=== PATIENT | male | born 1975 | race Caucasian/White ===

== ENCOUNTER 2018-06-09 15:04 | Inpatient (IN) | payer OTHER ==
[~2018-06-09] VITALS: Ht 185.4 cm; Wt 175.6 kg
[2018-06-09 15:49] LABS: BASO # 0.1 (0.0-0.2); BASO % 0.9 % (0.0-2.0); EOS # 0.2 (0.0-0.7); EOS % 2.5 % (0-4.0); GRAN # 5.5 (1.4-6.5); GRAN % 60.4 % (42.2-75.2); HEMATOCRIT 44.1 % (42.0-52.0); HEMOGLOBIN 15.2 g/dl (13.5-18.0); LYMPH # 2.5 (1.2-3.4); LYMPH % 27.5 % (20.0-51.0); MEAN CELL VOLUME 83 fl (80.0-100.0); MEAN CORPUSCULAR HEMOGLOBIN 29 pg (27.0-31.0); MEAN CORPUSCULAR HGB CONC 35 g/dl (33.0-37.0); MEAN PLATELET VOLUME 9.8 fl (7.4-10.4); MONO # 0.8 (0.1-0.6); MONO % 8.4 % (1.7-9.3); PLATELET COUNT 307 K/mm3 (130-400); RED BLOOD COUNT 5.32 M/mm3 (4.20-5.60); REDCELL DISTRIBUTION WIDTH-CV 12.3 % (11.5-14.5)
[2018-06-09 15:57] LABS: ALBUMIN 4.5 gm/dL (3.5-5.0); BILIRUBIN,TOTAL 0.4 mg/dL (0.0-1.0); C-REACTIVE PROTEIN 0.8 mg/dL (0.0-0.9); CALCIUM 9.6 mg/dL (8.4-10.2); CREATININE, serum 0.9 mg/dL (0.66-1.25); POTASSIUM 4.1 mmol/L (3.4-5.0)
[2018-06-09] MEDS ORDERED: AMOXICILLIN 8751 TAB PO (16:52)
[2018-06-09] MEDS ORDERED: COREG 25MG25 MG/TAB PO (16:53)
[2018-06-09] MEDS ORDERED: GLUCOPHAGE500 MG/TAB PO (16:53)
[2018-06-09] MEDS ORDERED: LIPITOR20 MG PO (17:30)
[2018-06-09] MEDS ORDERED: VENTOLIN0.09 MG IH (17:30)
[2018-06-09] MEDS ORDERED: PRINZIDE 25 MG-1 TAB PO (17:30)
--- NOTE | 2018-06-09 18:30 | NUR ---
Pt up to unit and Hospitalist in with pt now.
[2018-06-09 19:08] VITALS: BP 116/65; PULSE 87; TEMP 98.2
--- NOTE | 2018-06-09 19:51 | NUR ---
PT REPORT TO BLAINE.
--- NOTE | 2018-06-09 20:01 | NUR ---
Resting in bed with at bedside. Assessment complete. Lungs clear. Heart sounds normal. Bowels active. Pulses strong throughout. Alert and orientated. Denies pain. Denies needs at this time. Call light in reach.
--- NOTE | 2018-06-09 23:40 | NUR ---
Resting in bed watching TV. Call light in reach.
[2018-06-10 02:12] VITALS: BP 112/46; PULSE 79
--- NOTE | 2018-06-10 02:58 | NUR ---
Resting in bed. Provided water. Denies other needs. Call light in reach.
[2018-06-10 06:09] LABS: BASO # 0.1 (0.0-0.2); BASO % 0.8 % (0.0-2.0); EOS # 0.2 (0.0-0.7); EOS % 2.7 % (0-4.0); HEMATOCRIT 40.6 % (42.0-52.0); HEMOGLOBIN 13.7 g/dl (13.5-18.0); LYMPH # 2.5 (1.2-3.4); LYMPH % 33.6 % (20.0-51.0); MEAN CELL VOLUME 84 fl (80.0-100.0); MEAN CORPUSCULAR HEMOGLOBIN 28 pg (27.0-31.0); MEAN CORPUSCULAR HGB CONC 34 g/dl (33.0-37.0); MEAN PLATELET VOLUME 9.8 fl (7.4-10.4); MONO # 0.6 (0.1-0.6); MONO % 8.5 % (1.7-9.3); PLATELET COUNT 248 K/mm3 (130-400); RED BLOOD COUNT 4.86 M/mm3 (4.20-5.60); REDCELL DISTRIBUTION WIDTH-CV 12.5 % (11.5-14.5)
[2018-06-10 06:18] LABS: CREATININE, serum 0.92 mg/dL (0.66-1.25)
--- NOTE | 2018-06-10 06:38 | NUR ---
Uneventful night. Reports double vision still present. Neuro checks normal. Denies needs at this time. Call light in reach.
--- NOTE | 2018-06-10 07:33 | NUR ---
Resting in bed quitely. No pain or needs reported. The call light is in place.
[2018-06-10 07:38] VITALS: BP 129/74; PULSE 74; TEMP 97.9
[2018-06-10 11:47] VITALS: BP 121/65; PULSE 70; TEMP 97.6
--- NOTE | 2018-06-10 12:39 | NUR ---
Awaiting CTA head and neck. No other change throughout the morning the patient remains unsteady when ambulating. The patient also reported feeling like his left ear was itchy and had an excessive amount of ear wax when compared to the other ear. Dr. Lea suggested ENT to see the patient. The patient was negative for orthostatic blood pressure when checked per this nurse.
--- NOTE | 2018-06-10 13:24 | NUR ---
Report received from TRIP Sarmiento.Patient resting in bed with family at bedside.CTA neck and head to be done shortly.no concerns voiced at this time.call light in reach
--- NOTE | 2018-06-10 13:57 | NUR ---
SW and SW student attended clinical rounding and met with patient to discuss discharge planning. Patient lives with his Rossy in [place]. 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 Patient was independent prior to this but is now unable to walk. Patients PCP is Dr Steven Weiss and he obtains his medications from [facility]. SW will continue to follow for PT and OT recommendations.
[2018-06-10 15:51] VITALS: BP 137/57; PULSE 84; TEMP 98.6
--- NOTE | 2018-06-10 18:31 | NUR ---
PT HAS HAD AN EVENFUL SHIFT.ALL TEST UNREMARKABLE.IVF INFUSING.DENIES ANY PAIN.CONTINUES TO C/O DOUBLE VISION.SPOUSE AT BEDSIDE.NO OTHER NEEDS VOICED AT THIS TIME.ALL LIGHT IN REACH
[2018-06-10 18:59] VITALS: BP 143/84; PULSE 83; TEMP 98.1
--- NOTE | 2018-06-10 22:54 | NUR ---
PT IN BED WITH HOB ELEVATED TO 45 DEGREE ANGLE. PT DENIES PAIN OR DISCOMFORT. PT'S EYES STILL SWITCHES WHEN MOVES SIDE TO SIDE OR UP AND DOWN, BUT PUPILS DO EQUALITY REACT TO THE LIGHT. NO NEEDS AT THIS TIME, CALL LIGHT WITHIN REACH.
--- NOTE | 2018-06-10 23:01 | NUR ---
PT ADVISES THAT HE HAS CONTACTS IN HIS EYES AND DID NOT BRING HIS EQUIPMENT TO MAINTAIN THEM AND HE IS GOING TO SLEEP WITH THEM IN HIS EYES. ALSO, THESE ARE NOT THE KIND OF CONTACTS THAT YOU LEAVE IN AND CAN SLEEP WITH.
[2018-06-11 00:29] VITALS: BP 122/61; PULSE 70; TEMP 97.7
[2018-06-11 04:07] VITALS: BP 105/55; PULSE 72; TEMP 97.5
--- NOTE | 2018-06-11 04:33 | NUR ---
PT HAD AN UNEVENFUL NIGHT. PT AWAKENS FOR NEURO CHECKS AND VITALS AND THEN GOES BACK TO SLEEP. PT DENIES PAIN OR DISCOMFORT AND RESP EVEN AND UNLABORED. PT HAS NO NEEDS AT THIS TIME, IN RECLINER AT BEDSIDE, AND CALL LIGHT WITHIN REACH.
--- NOTE | 2018-06-11 07:45 | NUR ---
Pt AAOx3 with spouse at bedside. Call light within reach. MD Venu and MD Jeannette have seen pt and inputed orders. No concerns by patient at this time.
[2018-06-11 08:32] VITALS: BP 116/63; PULSE 68; TEMP 97.9
[2018-06-11 11:22] VITALS: BP 123/53; PULSE 72; TEMP 97.9
[2018-06-11] MEDS ORDERED: FREESTYLE PREC1 EAC5 MC (14:43)
[2018-06-11] MEDS ORDERED: GLUCOSE TEST ST1 DEV MC (14:44)
[2018-06-11] MEDS ORDERED: LANCETS MC (14:44)
--- NOTE | 2018-06-11 15:12 | NUR ---
O2 D/C. PT ON RA FOR 24 HRS PER PROTOCOL
--- NOTE | 2018-06-11 18:00 | NUR ---
Pt transported via wheelchair downstairs to private vehicle, Via [facility] equipment dispatched to pt's home to deliver walker.
[2018-06-12 14:30] LABS: FOLATE (FOLIC ACID) 9.6 ng/mL (7.0-31.4)
[2018-06-13 20:46] LABS: RPR (VDRL) XXX
== END 2018-06-11 17:30 | disposition home or self-care (01) | DRG 948 ==
LOC: COL.ER 15:04 → MEDICAL 17:01
PROVIDERS: Emergency Medicine; Hospitalist; Nurse Practitioner Family; ADMIT Hospitalist
DX: R53.1 Weakness (principal); Z68.43 Body mass index [BMI] 50.0-59.9, adult; H53.2 Diplopia; R73.03 Prediabetes; I10 Essential (primary) hypertension; J20.9 Acute bronchitis, unspecified; E66.01 Morbid (severe) obesity due to excess calories; H55.09 Other forms of nystagmus; G47.33 Obstructive sleep apnea (adult) (pediatric)
CPT/HCPCS: 99222-AI; 99239; A9585; J1650; J7030; Q9967

== ENCOUNTER 2018-06-22 15:06 | Inpatient (IN) | payer OTHER ==
[~2018-06-22] VITALS: Ht 185.4 cm; Wt 178.5 kg
[~2018-06-22 15:06] MED LIST: AMOXICILLIN 8751 TAB PO; COREG 25MG25 MG/TAB PO; FREESTYLE PREC1 EAC5 MC; GLUCOPHAGE500 MG/TAB PO; GLUCOSE TEST ST1 DEV MC; LANCETS MC; LIPITOR 40MG TA40 MG PO; PRINZIDE 25 MG-1 TAB PO; VENTOLIN0.09 MG IH
[2018-07-25] MEDS ORDERED: OS-CAL 500 + D1 TAB PO (13:46)
[2018-07-25] MEDS ORDERED: LANTUS SOLOS100 U/ML SQ (13:47)
[2018-07-25] MEDS ORDERED: PROTONIX 40MG T40 MG PO (13:47)
[2018-07-25] MEDS ORDERED: PREDNISONE20 MG PO (13:51)
[2018-07-25 14:38] VITALS: BP 137/81; PULSE 87; TEMP 98.2
[2018-07-25] MEDS ORDERED: ASPIRIN E.C. 8181 MG PO (14:58)
[2018-07-25] MEDS ORDERED: FOLIC ACID 11 MG/TA1 PO (15:05)
[2018-07-25] MEDS ORDERED: NATURE'S BLEND100 M2 PO (15:08)
[2018-07-25 16:23] VITALS: BP 137/81; PULSE 87; TEMP 98.2
[2018-07-25 19:48] VITALS: BP 135/58; PULSE 75; TEMP 97.3
[2018-07-26 03:35] VITALS: BP 133/70; PULSE 72; TEMP 97.5
[2018-07-26 18:39] VITALS: BP 139/66; PULSE 79; TEMP 98.6
[2018-07-27 05:22] VITALS: BP 115/69; PULSE 80; TEMP 98.2
[2018-07-27 18:28] VITALS: BP 142/65; PULSE 77; TEMP 98
[2018-07-28 05:47] VITALS: BP 103/58; PULSE 69; TEMP 98.4
[2018-07-28 18:17] VITALS: BP 128/52; PULSE 81; TEMP 98.4
[2018-07-29 05:35] VITALS: BP 136/73; PULSE 76; TEMP 97.8
[2018-07-29 15:17] VITALS: BP 133/60; PULSE 84; TEMP 98.8
[2018-07-30 05:25] VITALS: BP 134/66; PULSE 75; TEMP 98.2
[2018-07-30 18:01] VITALS: BP 129/52; PULSE 76; TEMP 98.6
[2018-07-31 06:00] VITALS: BP 106/78; PULSE 69; TEMP 98.1
[2018-07-31 17:33] VITALS: BP 115/60; PULSE 77; TEMP 98.9
[2018-07-31 17:36] VITALS: BP 130/78; PULSE 81; TEMP 99.3
[2018-08-01 05:25] VITALS: BP 127/60; PULSE 74; TEMP 98.4
[2018-08-01 17:30] VITALS: BP 138/74; PULSE 73; TEMP 98.9
[2018-08-01 20:45] VITALS: BP 118/64; PULSE 80; TEMP 98.6
[2018-08-02 06:00] VITALS: BP 129/61; PULSE 70; TEMP 98.3
[2018-08-02 18:51] VITALS: BP 146/81; PULSE 79; TEMP 98.4
[2018-08-03 05:35] VITALS: BP 123/65; PULSE 64; TEMP 97.7
[2018-08-03] MEDS ORDERED: ASPERCREME1 EACH TP (08:45)
[2018-08-03] MEDS ORDERED: PROAIR HFA0.09 MG/AC IH (08:45)
[2018-08-03] MEDS ORDERED: TYLENOL 325MG325 MG PO (08:46)
[2018-08-03] MEDS ORDERED: PREDNISONE20 MG PO (08:48)
[2018-08-03] MEDS ORDERED: ROXICODONE 55 MG/TAB PO (08:49)
== END 2018-08-03 11:55 | disposition left against medical advice (07) | DRG 57 ==
PROVIDERS: ADMIT Internal Medicine
DX: G31.9 Degenerative disease of nervous system, unspecified (principal); G11.9 Hereditary ataxia, unspecified; Z68.43 Body mass index [BMI] 50.0-59.9, adult; I10 Essential (primary) hypertension; E11.9 Type 2 diabetes mellitus without complications; E78.5 Hyperlipidemia, unspecified; F43.23 Adjustment disorder with mixed anxiety and depressed mood; E66.01 Morbid (severe) obesity due to excess calories; H53.2 Diplopia; Z87.891 Personal history of nicotine dependence; Z91.81 History of falling; R47.1 Dysarthria and anarthria
CPT/HCPCS: 99222-AI; 99231-AI; 99232-AI; 99239; J1644; J1815; J7512

== ENCOUNTER 2018-06-28 15:53 | Outpatient (RCR) | payer OTHER | END 2018-07-22 09:33 | disposition home or self-care (01) | LOC: WSC 15:53 | DX: I69.398 Other sequelae of cerebral infarction (principal); H53.2 Diplopia; R26.2 Difficulty in walking, not elsewhere classified; R53.81 Other malaise ==

== ENCOUNTER 2018-12-10 18:10 | Emergency (ER) | payer OTHER ==
[~2018-12-10] VITALS: Ht 185.4 cm; Wt 145.5 kg
[~2018-12-10 18:10] MED LIST changes: +ASPERCREME1 EACH TP; +ASPIRIN E.C. 8181 MG PO; +FOLIC ACID 11 MG/TA1 PO; +LANTUS SOLOS100 U/ML SQ; +NATURE'S BLEND100 M2 PO; +OS-CAL 500 + D1 TAB PO; +PREDNISONE20 MG PO; +PROAIR HFA0.09 MG/AC IH; +PROTONIX 40MG T40 MG PO; +ROXICODONE 55 MG/TAB PO; +TYLENOL 325MG325 MG PO
[2018-12-10 18:24] VITALS: BP 136/90; TEMP 98.9
[2018-12-10 19:05] LABS: BASO # 0.1 (0.0-0.2); BASO % 0.9 % (0.0-2.0); EOS # 0.1 (0.0-0.7); EOS % 0.9 % (0-4.0); GRAN # 8.3 (1.4-6.5); GRAN % 70.7 % (42.2-75.2); HEMATOCRIT 48.6 % (42.0-52.0); HEMOGLOBIN 16.2 g/dl (13.5-18.0); LYMPH # 2.2 (1.2-3.4); LYMPH % 18.8 % (20.0-51.0); MEAN CELL VOLUME 84 fl (80.0-100.0); MEAN CORPUSCULAR HEMOGLOBIN 28 pg (27.0-31.0); MEAN CORPUSCULAR HGB CONC 33 g/dl (33.0-37.0); MEAN PLATELET VOLUME 10.1 fl (7.4-10.4); MONO % 8.4 % (1.7-9.3); PLATELET COUNT 327 K/mm3 (130-400); RED BLOOD COUNT 5.82 M/mm3 (4.20-5.60); REDCELL DISTRIBUTION WIDTH-CV 12.3 % (11.5-14.5)
[2018-12-10 19:24] LABS: ALANINE AMINOTRANSFERASE 68 U/L (21-72); ALBUMIN 4.4 gm/dL (3.5-5.0); ALKALINE PHOSPHATASE 83 U/L (50-136); ANION GAP 13 mmol/L (7-16); AST,SGOT 37 U/L (15-37); BILIRUBIN,TOTAL 0.4 mg/dL (0.0-1.0); BLOOD UREA NITROGEN 9 mg/dL (9-20); C-REACTIVE PROTEIN 0.8 mg/dL (0.0-0.9); CARBON DIOXIDE 26 mmol/L (22-30); CHLORIDE 103 mmol/L (98-107); CREATININE, serum 0.82 (0.66-1.25); GLUCOSE 123 mg/dL (74-106); LIPASE 280 U/L (23-300); POTASSIUM 3.8 mmol/L (3.4-5.0); SODIUM 142 mmol/L (137-145); TOTAL PROTEIN 7.6 gm/dL (6.4-8.2)
[2018-12-10 19:33] LABS: TROPONIN-I < 0.012 ng/mL (0.000-0.035)
[2018-12-10 19:43] LABS: COLLECTION METHOD CLEAN CATCH
[2018-12-10 20:04] LABS: MUCOUS Present /lpf; PH 6 (5-8); SQUAMOUS EPITHELIAL None Seen /hpf; URINE APPEARANCE Clear; URINE BACTERIA None Seen /hpf; URINE BILIRUBIN Negative (NEGATIVE); URINE BLOOD 3+ (NEGATIVE); URINE COLOR Yellow; URINE GLUCOSE Negative (NEGATIVE); URINE KETONE Negative (NEGATIVE); URINE LEUKOCYTE ESTERASE Negative (NEGATIVE); URINE NITRATE Negative (NEGATIVE); URINE PROTEIN(semi-quant) Negative (NEGATIVE); URINE RBC 20-50 /hpf; URINE UROBILINOGEN Negative (NEGATIVE)
[2018-12-10] MEDS ORDERED: NORCO 325 MG-51 TAB PO (22:14)
[2018-12-10 22:36] VITALS: PULSE 101
== END 2018-12-10 22:36 | disposition home or self-care (01) ==
LOC: COL.ER 18:10
PROVIDERS: Emergency Medicine
DX: N20.1 Calculus of ureter (principal); N23 Unspecified renal colic; R19.7 Diarrhea, unspecified; E11.9 Type 2 diabetes mellitus without complications; I10 Essential (primary) hypertension; Z79.82 Long term (current) use of aspirin; Z79.84 Long term (current) use of oral hypoglycemic drugs
CPT/HCPCS: J2405; J3010; J7030; Q9967

== ENCOUNTER 2019-12-21 02:33 | Inpatient (IN) | payer OTHER ==
[~2019-12-21] VITALS: Ht 185.4 cm; Wt 140.7 kg
[~2019-12-21 02:33] MED LIST changes: +NORCO 325 MG-51 TAB PO
[2019-12-21 03:22] LABS: BASO # 0.1 (0.0-0.2); BASO % 0.7 % (0.0-2.0); EOS # 0.1 (0.0-0.7); EOS % 0.3 % (0-4.0); GRAN # 15.3 (1.4-6.5); GRAN % 83.9 % (42.2-75.2); HEMATOCRIT 47.8 % (42.0-52.0); LYMPH # 1.7 (1.2-3.4); LYMPH % 9.6 % (20.0-51.0); MEAN CELL VOLUME 84 fl (80.0-100.0); MEAN CORPUSCULAR HEMOGLOBIN 28 pg (27.0-31.0); MEAN CORPUSCULAR HGB CONC 34 g/dl (33.0-37.0); MEAN PLATELET VOLUME 10.2 fl (7.4-10.4); MONO % 5.2 % (1.7-9.3); PLATELET COUNT 285 K/mm3 (130-400); RED BLOOD COUNT 5.68 M/mm3 (4.20-5.60); REDCELL DISTRIBUTION WIDTH-CV 12.7 % (11.5-14.5)
[2019-12-21 03:24] LABS: COLLECTION METHOD CLEAN CATCH
[2019-12-21 03:33] LABS: ALBUMIN 4.7 gm/dL (3.5-5.0); BILIRUBIN,TOTAL 0.7 mg/dL (0.0-1.0); C-REACTIVE PROTEIN 0.6 mg/dL (0.0-0.9); CALCIUM 9.4 mg/dL (8.4-10.2); CREATININE, serum 1.02 (0.66-1.25); POTASSIUM 3.9 mmol/L (3.4-5.0); TOTAL PROTEIN 7.8 gm/dL (6.4-8.2)
[2019-12-21 03:37] LABS: MUCOUS Present /lpf; PH 5 (5-8); SQUAMOUS EPITHELIAL 0-2 /hpf; URINE APPEARANCE Hazy; URINE BACTERIA None Seen /hpf; URINE BILIRUBIN Negative (NEGATIVE); URINE BLOOD 2+ (NEGATIVE); URINE COLOR Yellow; URINE GLUCOSE Negative (NEGATIVE); URINE KETONE Negative (NEGATIVE); URINE LEUKOCYTE ESTERASE Negative (NEGATIVE); URINE NITRATE Negative (NEGATIVE); URINE PROTEIN(semi-quant) 1+ (NEGATIVE); URINE RBC 20-50 /hpf; URINE UROBILINOGEN Negative (NEGATIVE)
[2019-12-21] MEDS ORDERED: GAMUNEX-C10 GM/100 IV (03:48)
[2019-12-21 08:25] VITALS: BP 123/82; PULSE 95; TEMP 98.6
--- NOTE | 2019-12-21 10:36 | NUR ---
Patient alert and oriented, answers questions appropriately. See assessment. Speech slurred per patient norm. Generalized weakness per patient norm. Transferred bed to bed with minimal assist. States does not ambulate. Skin with no issues noted. No c/o flank or back pain. Uses urinal with assist, no c/o urinary burning, c/o urinary frequency and heistancy. No other c/o at this time. Dr Grigsby here to see patient.
--- NOTE | 2019-12-21 10:36 | NUR ---
Initial visit; Patient thanked Furniture Mover Helper for visiting and offering God's blessings.
--- NOTE | 2019-12-21 12:24 | NUR ---
René CASTANEDA with urology here to see patient.
[2019-12-21 12:29] VITALS: BP 144/76; PULSE 83; TEMP 98.3
--- NOTE | 2019-12-21 16:13 | NUR ---
Benefits Specialist met with the patient to complete initial intake. The patient lives in [place] with his , Mare # [phone]. The patient uses a manual wheelchair at baseline. The patient receives assistance with transfers from Mare. The patient does not have any HHS at this time. The patient's PCP is Dr. Weiss and patient receives medications from [facility]. The patient plans to return home at discharge. JOHN contacted Mare to discuss this plan. JOHN inquired about HHS. She states that the patient has HH benefits but they have other medical matters that require the use of the insurance. The patient had [facility] from [facility]. The patient has [employer] which is COBRA from the patient's job and they pay $800 a month. Mare was interested in applying for Medicaid and/or Medicare. JOHN emailed Sydney Mohan, financial supervisor. Will continue to follow.
[2019-12-21 16:25] VITALS: BP 151/85; PULSE 79; TEMP 99
[2019-12-21 19:23] VITALS: BP 148/81; PULSE 85; TEMP 98
--- NOTE | 2019-12-21 20:00 | NUR ---
Received report from TRIP Coronado. Pt was at bedside. Pt has no compliants of pain at this time. Pt has his call light within reach and his bed is in lowest position.
[2019-12-22] VITALS (13 sets, daily range): BP systolic 123–1410; BP diastolic 67–96; PULSE 72–86; TEMP 97.7–98.8
--- NOTE | 2019-12-22 04:00 | NUR ---
Pt called to have help with using the urinal. Pt was assisted with the urinal and pt was cleaned and his shorts were removed at this time due to leakage while using the urinal. Pt has his call light within reach and his bed is in lowest position .
--- NOTE | 2019-12-22 05:50 | NUR ---
Pt was helped to get a clean gown on and his sheets were changed. Pt was cleaned with wipes and is currently resting in bed. Pt was informed that he would have a antibiotic given and one PO medications this morning. Pt has his call light within reach and his bed is in lowest position.
--- NOTE | 2019-12-22 07:36 | NUR ---
PT TO SURGERY PER BED WITH OLIVIA @[id number].\
[2019-12-22 07:42] LABS: BASO # 0.1 (0.0-0.2); EOS # 0.1 (0.0-0.7); EOS % 1.5 % (0-4.0); GRAN # 3.5 (1.4-6.5); GRAN % 55.8 % (42.2-75.2); HEMATOCRIT 41.5 % (42.0-52.0); LYMPH # 1.9 (1.2-3.4); LYMPH % 31.2 % (20.0-51.0); MEAN CELL VOLUME 84 fl (80.0-100.0); MEAN CORPUSCULAR HEMOGLOBIN 28 pg (27.0-31.0); MEAN CORPUSCULAR HGB CONC 33 g/dl (33.0-37.0); MEAN PLATELET VOLUME 10.4 fl (7.4-10.4); MONO # 0.6 (0.1-0.6); MONO % 10.3 % (1.7-9.3); PLATELET COUNT 202 K/mm3 (130-400); RED BLOOD COUNT 4.93 M/mm3 (4.20-5.60); REDCELL DISTRIBUTION WIDTH-CV 12.6 % (11.5-14.5)
[2019-12-22 07:58] LABS: CALCIUM 8.8 mg/dL (8.4-10.2); CREATININE, serum 0.81 (0.66-1.25); HEMOGLOBIN 13.8 g/dl (13.5-18.0); POTASSIUM 3.4 mmol/L (3.4-5.0)
--- NOTE | 2019-12-22 08:51 | NUR ---
PT TO ROOM 347 PER BED WITH REPORT FROM JOHANNA DOMINIQUE PACU @3622. PT IS A/O X3 LUNGS CLEAR, BOWEL SOUNDS PRESENT. VSS, PT HAS UNDERLYING CHRONIC NEUROLOICAL CONDITION. MANAGED BY PT AND FAMILY. IV TO RFA PER GRAVITY AT THIS TIME. GENERAL DIET TRAY ORDERED PER PT REQUEST,
--- NOTE | 2019-12-22 09:14 | NUR ---
IN TO SEE PT THIS AM. PLAN ON DISCHARGE LATER THIS PM.
--- NOTE | 2019-12-22 09:19 | NUR ---
Orthopedic Coder attended clinical rounds with the team. The patient's life partner, Mare was present. The patient to tentatively discharge home today, 12/21 home with Mare. SW emailed Sydney Mohan regarding discharge. There are no additional needs at this time.
--- NOTE | 2019-12-22 13:19 | NUR ---
DISCHARGE INSTSRUCTIONS REVIEWED WITH PT AND SPOUSE. SPOUSE VERBALIZED UNDERSTANDING. PT TAKEN TO FRONT IN WHEEL CHAIR.
--- NOTE | 2019-12-22 13:24 | NUR ---
PT HAS VOIDED AND MET ALL OTHER CRITERIA FOR DISCHARGE AT THIS TIME.
== END 2019-12-22 13:25 | disposition home or self-care (01) | DRG 694 ==
LOC: COL.ER 02:33 → SURG 06:28
PROVIDERS: Emergency Medicine; Physician Assistant; Urology; ADMIT Student in an Organized Health Care Education/Training Program
PROC: 0TCB8ZZ Extirpation of Matter from Bladder, Via Natural or Artificial Opening Endoscopic (ICD-10-PCS; principal; 2019-12-22 07:30)
DX: N13.2 Hydronephrosis with renal and ureteral calculous obstruction (principal); E87.2 Acidosis; N21.0 Calculus in bladder; E11.9 Type 2 diabetes mellitus without complications; I10 Essential (primary) hypertension; E78.5 Hyperlipidemia, unspecified; E66.01 Morbid (severe) obesity due to excess calories; Z79.4 Long term (current) use of insulin; Z87.891 Personal history of nicotine dependence; K21.9 Gastro-esophageal reflux disease without esophagitis; N13.0 Hydronephrosis with ureteropelvic junction obstruction
CPT/HCPCS: 99222-AI; C1769; J0690; J0696; J1815; J2270; J2405; J2704; J3010; J7030; Q9967

== ENCOUNTER 2019-12-29 23:31 | Emergency (ER) | payer OTHER ==
[~2019-12-29] VITALS: Ht 185.4 cm; Wt 127.3 kg
[~2019-12-29 23:31] MED LIST changes: +GAMUNEX-C10 GM/100 IV
[2019-12-29 23:36] VITALS: TEMP 98.6
[2019-12-30 00:11] LABS: BASO # 0.1 (0.0-0.2); BASO % 0.6 % (0.0-2.0); EOS % 0.1 % (0-4.0); GRAN # 12.6 (1.4-6.5); GRAN % 86.9 % (42.2-75.2); HEMATOCRIT 43.3 % (42.0-52.0); HEMOGLOBIN 14.8 g/dl (13.5-18.0); LYMPH # 1.1 (1.2-3.4); LYMPH % 7.2 % (20.0-51.0); MEAN CELL VOLUME 83 fl (80.0-100.0); MEAN CORPUSCULAR HEMOGLOBIN 28 pg (27.0-31.0); MEAN CORPUSCULAR HGB CONC 34 g/dl (33.0-37.0); MONO # 0.7 (0.1-0.6); MONO % 4.9 % (1.7-9.3); PLATELET COUNT 270 K/mm3 (130-400); RED BLOOD COUNT 5.24 M/mm3 (4.20-5.60); REDCELL DISTRIBUTION WIDTH-CV 12.8 % (11.5-14.5)
[2019-12-30 00:24] LABS: ALANINE AMINOTRANSFERASE 17 U/L (4-49); ALBUMIN 4.4 gm/dL (3.5-5.0); ALKALINE PHOSPHATASE 102 U/L (50-136); ANION GAP 11 mmol/L (7-16); AST,SGOT 20 U/L (15-37); BILIRUBIN,TOTAL 0.5 mg/dL (0.0-1.0); BLOOD UREA NITROGEN 19 mg/dL (9-20); CALCIUM 9.4 mg/dL (8.4-10.2); CARBON DIOXIDE 25 mmol/L (22-30); CHLORIDE 104 mmol/L (98-107); CREATININE, serum 1.04 (0.66-1.25); GLUCOSE 150 mg/dL (74-106); LIPASE 134 U/L (23-300); POTASSIUM 3.7 mmol/L (3.4-5.0); SODIUM 140 mmol/L (137-145); TOTAL PROTEIN 7.3 gm/dL (6.4-8.2)
[2019-12-30 00:25] LABS: C-REACTIVE PROTEIN < 0.5 mg/dL (0.0-0.9)
[2019-12-30 00:52] LABS: COLLECTION METHOD CLEAN CATCH
[2019-12-30 00:58] LABS: MUCOUS Present /lpf; PH 5 (5-8); SQUAMOUS EPITHELIAL 0-2 /hpf; URINE APPEARANCE Clear; URINE BACTERIA None Seen /hpf; URINE BILIRUBIN Negative (NEGATIVE); URINE BLOOD 3+ (NEGATIVE); URINE COLOR Yellow; URINE GLUCOSE Negative (NEGATIVE); URINE KETONE Trace (NEGATIVE); URINE LEUKOCYTE ESTERASE Negative (NEGATIVE); URINE NITRATE Negative (NEGATIVE); URINE PROTEIN(semi-quant) 1+ (NEGATIVE); URINE RBC 0-2 /hpf; URINE UROBILINOGEN Negative (NEGATIVE)
[2019-12-30] MEDS ORDERED: ZOFRAN ODT4 MG PO (02:51)
[2019-12-30] MEDS ORDERED: NORCO 325 MG-51 TAB PO (02:51)
[2019-12-30 03:20] VITALS: BP 158/90; PULSE 94
== END 2019-12-30 03:20 | disposition home or self-care (01) ==
LOC: COL.ER 23:31
PROVIDERS: Emergency Medicine
DX: N20.1 Calculus of ureter (principal); E11.9 Type 2 diabetes mellitus without complications; E78.5 Hyperlipidemia, unspecified; I10 Essential (primary) hypertension; E66.2 Morbid (severe) obesity with alveolar hypoventilation; Z68.37 Body mass index [BMI] 37.0-37.9, adult; Z87.442 Personal history of urinary calculi; Z79.82 Long term (current) use of aspirin; Z79.4 Long term (current) use of insulin
CPT/HCPCS: J2405; J2550; J3010; J7030; Q9967

== ENCOUNTER → 2020-06-11 | Outpatient (CLI) | payer OTHER ==
[~2020-06-11] MED LIST changes: +ZOFRAN ODT4 MG PO
== END ==
LOC: COL.RAD 13:30
DX: G04.81 Other encephalitis and encephalomyelitis (principal); G31.9 Degenerative disease of nervous system, unspecified
CPT/HCPCS: A9585